=== PATIENT | female | born 1935 | race Caucasian/White ===

== ENCOUNTER 2016-09-07 06:02 | Inpatient (IN) | payer MEDICARE, OTHER ==
[~2016-09-07 06:02] MED LIST: TRANEXAMIC ACID 1,000 MG in NORMAL SALINE 100 ML IV SCH; ceFAZolin 1 GM in NORMAL SALINE MINI-BAG+ 100 ML IV ONE
[2016-09-07] MEDS ORDERED: LIDOCAINE HCL 1% 20 ML VIAL SUBCUT ONE ×2 (06:52→09:16)
[2016-09-07] MEDS ORDERED: MIDAZOLAM HCL 2 MG/2 ML SYR IV ONE (06:52)
[2016-09-07] MEDS ORDERED: ACETAMINOPHEN 1,000 MG/100 ML VIAL IV ONE (06:55)
[2016-09-07] MEDS ORDERED: FAMOTIDINE IN SALINE, ISO-OSM 50 ML IV ONE (06:55)
[2016-09-07] MEDS ORDERED: MIDAZOLAM HCL 2 MG/2 ML VIAL ONE ×2 (06:56→07:43)
[2016-09-07] MEDS ORDERED: TRANEXAMIC ACID 1,000 MG/10 ML VIAL IV ONE ×2 (06:56→13:00)
[2016-09-07] MEDS ORDERED: ceFAZolin 1 GM/10 ML VIAL ONE ×3 (06:56→19:45)
[2016-09-07] MEDS ORDERED: FAMOTIDINE IN SALINE, ISO-OSM 20 MG/50 ML PIGGYBACK IV SCH ×2 (07:00→09:16)
[2016-09-07] MEDS ORDERED: LACTATED RINGERS 1,000 ML IV SCH ×3 (07:00→10:00)
[2016-09-07] MEDS ORDERED: NORMAL SALINE FLUSH 10 ML ONE (07:06)
[2016-09-07] MEDS ORDERED: MORPHINE SULFATE/PF 10 MG/10 ML VIAL ONE ×2 (07:06→07:10)
[2016-09-07] MEDS ORDERED: KETOROLAC TROMETHAMINE 30 MG/ML VIAL ONE (07:07)
[2016-09-07] MEDS ORDERED: ROPIVACAINE HCL 0.5% 30 ML ONE (07:07)
[2016-09-07] MEDS ORDERED: BACITRACIN 14 APP/14 GM TUBE TOPICAL ONE (07:07)
[2016-09-07] MEDS ORDERED: BACITRACIN 50,000 UNITS VIAL IM ONE (07:07)
[2016-09-07] MEDS ORDERED: BUPIVACAINE/EPI 0.25% 1 VIAL VIAL ONE (07:07)
[2016-09-07] MEDS ORDERED: FENTANYL 100 MCG/2 ML VIAL ONE (07:09)
[2016-09-07] MEDS ORDERED: PHENYLEPHRINE HCL 10,000 MCG/ML VIAL ONE (07:10)
[2016-09-07] MEDS ORDERED: TETRACAINE HCL 1% 20 MG/2 ML AMP ONE (07:10)
[2016-09-07] MEDS ORDERED: EPHEDrine SULFATE 50 MG/ML VIAL ONE (07:10)
[2016-09-07] MEDS ORDERED: NORMAL SALINE FLUSH 20 ML ONE (07:11)
[2016-09-07 07:12] LABS: ABO GROUP TYPE A; ANTIBODY SCREEN NEGATIVE; RH TYPE NEGATIVE
[2016-09-07] MEDS: ceFAZolin 1 GM in NORMAL SALINE MINI-BAG+ 100 ML IV ONE ×2 (07:30→13:34)
[2016-09-07] MEDS ORDERED: ONDANSETRON HCL 4 MG/2 ML VIAL IV PRN (09:14)
[2016-09-07] MEDS ORDERED: FENTANYL 100 MCG/2 ML VIAL IV PRN (09:14)
[2016-09-07] MEDS ORDERED: DIPHENHYDRAMINE 50 MG/ML VIAL IV PRN ×3 (09:14→10:41)
[2016-09-07] MEDS ORDERED: HYDROmorphone HCL 1 MG/ML SYR IV PRN (09:14)
[2016-09-07] MEDS ORDERED: DIPHENHYDRAMINE 25 MG CAPSULE PO PRN ×3 (09:14→10:41)
[2016-09-07] MEDS ORDERED: NALBUPHINE HCL 10 MG/ML AMP IV PRN ×3 (09:14→10:41)
[2016-09-07] MEDS ORDERED: NALOXONE HCL 0.4 MG/ML VIAL IV PRN ×9 (09:14→10:41)
[2016-09-07] MEDS ORDERED: MORPHINE SULFATE 10 MG/ML SYR IV PRN (09:14)
[2016-09-07] MEDS ORDERED: TRANEXAMIC ACID 1,000 MG in NORMAL SALINE 100 ML IV SCH (09:16)
[2016-09-07] MEDS ORDERED: ONDANSETRON HCL 4 MG/2 ML VIAL ONE (11:40)
[2016-09-07] MEDS ORDERED: TRANEXAMIC ACID 1,000 MG in NORMAL SALINE 100 ML IV ONE (12:00)
[2016-09-07] MEDS: LACTATED RINGERS 1,000 ML IV SCH (12:18)
--- NOTE | 2016-09-07 12:41 | OPERATIVE REPORT ---
DATE OF SURGERY: 09/07/16 SURGEON: El Salomon DO ANESTHESIA: Spinal. PREOPERATIVE DIAGNOSIS: Left knee osteoarthritis. POSTOPERATIVE DIAGNOSIS: Left knee osteoarthritis. OPERATION PERFORMED: Left total knee arthroplasty. SPECIMENS REMOVED: Diseased bone and soft tissue. ESTIMATED BLOOD LOSS: Minimal. TOTAL TOURNIQUET TIME: 72 minutes. ORTHOPEDIC IMPLANTS 1. Biomet cobalt bone cement high viscosity with Gentamycin. 2. William Persona all polyethylene patella 32 mm in diameter and 8.5 mm in thickness. 3. William Persona natural tibia cemented 5 degree stem left size D. 4. William Persona femur cemented posterior stabilized standard left size 6. 5. William Persona Vivacit E highly crosslinked polyethylene articular surface fixed bearing posterior stabilized left 10 mm size C-D PROCEDURE NOTE: The patient was brought to the operating room suite and after administration of spinal anesthesia the left lower extremity was prepped and draped in a sterile fashion after applying a well padded tourniquet to the left proximal thigh. A longitudinal midline anterior incision was made over the left knee and dissection was carried down to the extensor mechanism. Any small bleeders were cauterized with an electrocautery device. The medial parapatellar arthrotomy was performed. A portion of the anterior fat pad was removed for visualization purposes as were the medial and lateral meniscus of the anterior horns. The anterior cruciate ligament and posterior cruciate ligament were cut. The knee was flexed up and appropriate bone defects were made on the femur and tibia with their proximal and distal cuts, followed by insertion of a 10 mm spacer block to check extension gaps which were well balanced. The knee was then flexed up again with retractors in place and the remainder of the bone defects were made on the femur and tibia to the appropriate depth utilizing the William Persona instrumentation set. The patella was also measured, and its appropriate bone defects were made and the patellar button was inserted, followed by insertion of prosthetic implants throughout the knee for the femur and tibia. The knee was taken through a full range of motion with the patella relocated and was noted to be exceptionally stable through flexion, extension, varus and valgus and toggle and anterior and posterior shuck. The knee was very well balanced throughout flexion and extension. Transfusion was started at this point in the surgery. The trial implants were removed, and the knee was copiously irrigated with bacitracin infused with normal saline, while the cement was being mixed. The cut bony surfaces were dried off with lap sponge and the final prosthetic implants were cemented into place after finger impaction with cement. The trial polyethylene was inserted, and the knee was taken up into full extension, followed by cementing of the patellar button. Excess cement was removed and the tourniquet was then let down. Any bleeders were cauterized with an electrocautery device. A drain was inserted into the knee. Prior to letting down the tourniquet and before inserting the trial polyethylene spacer, the knee was injected with a 60 mL volume of specific cocktail containing 150 mg of ropivacaine, 15 mg of Ketoralac, 0.3 mg epinephrine, and 4 mg morphine sulfate in total volume of 60 mL, making up the difference utilizing 0.9% normal saline for a total volume of 60 mL. The polyethylene spacer was removed and the final articular tibial bearing was inserted and locked into place. The knee was again taken through full range of motion and was noted to be exceptionally stable. The parapatellar arthrotomy was then closed intermittently with #2 Fiberwire intermittently with #1 Vicryl. The remainder of the layers were closed with 0 Vicryl, followed 2-0 Vicryl, followed by a 3-0 Monocryl at the skin subcutaneously, followed by application of a Aquacel Ag dressing. Tegaderm was placed over the drain site. The knee was wrapped with cast padding and an Magdaleno bandage for compression and a [facility] Cryo-Cuff was fitted. The patient was transferred from the operating room suite to the recovery room in stable condition. ORIN
[2016-09-07] MEDS ORDERED: NORMAL SALINE 100 ML IV ONE ×2 (12:51→19:45)
[2016-09-07] MEDS: ceFAZolin 1 GM in NORMAL SALINE MINI-BAG+ 100 ML IV SCH ×2 (12:57→20:00)
[2016-09-07] MEDS: MULTIVITAMINS THERAPEUTIC 1 TABLET PO SCH (13:06)
[2016-09-07] MEDS: FOLIC ACID 1 MG TABLET PO SCH (13:06)
[2016-09-07] MEDS: ASCORBIC ACID 500 MG TABLET PO SCH ×2 (13:06→20:00)
[2016-09-07] MEDS: ONDANSETRON HCL 4 MG/2 ML VIAL IV PRN (16:38)
[2016-09-08] MEDS: ACETAMINOPHEN 325 MG TABLET PO PRN ×2 (00:24→21:05)
[2016-09-08] MEDS: LACTATED RINGERS 1,000 ML IV SCH ×2 (02:09→15:21)
[2016-09-08] MEDS: HYDROcodone/APAP 5/325 MG 1 TAB TABLET PO PRN ×2 (04:14→09:11)
[2016-09-08] MEDS: ceFAZolin 1 GM in NORMAL SALINE MINI-BAG+ 100 ML IV SCH (04:51)
[2016-09-08] MEDS ORDERED: ceFAZolin 1 GM/10 ML VIAL ONE (04:58)
[2016-09-08] MEDS ORDERED: NORMAL SALINE 100 ML IV ONE (04:59)
[2016-09-08 06:08] LABS: BASOPHIL# 0.1 X 10^3uL (0.0-0.1); BASOPHILS 0.9 % (0.0-2.0); EOSINOPHILS 0.8 % (0.0-6.0); EOSINOPHILS# 0.1 X 10^3uL (0.0-0.4); HEMOGLOBIN 11.1 g/dL (12.0-16.0); LYMPHOCYTES 15.7 % (20.0-40.0); LYMPHOCYTES# 1.4 X 10^3uL (0.8-3.8); MEAN CELL VOLUME 96.8 fL (80.0-100.0); MEAN CORPUS. HGB CONCENTRATION 34.6 g/dL (32.0-36.0); MEAN CORPUSCULAR HEMOGLOBIN 33.5 pg (29.0-35.0); MEAN PLATELET VOLUME 8.7 fL (7.4-10.4); MONOCYTES 9.4 % (2.0-10.0); MONOCYTES# 0.8 X 10^3uL (0.2-1.0); NEUTROPHILS 73.2 % (54.0-75.0); NEUTROPHILS# 6.4 X 10^3uL (2.6-6.7); RED BLOOD COUNT 3.31 X 10^6uL (4.20-6.10); RED CELL DISTRIBUTION WIDTH 11.8 % (11.5-14.5); WHITE BLOOD COUNT 8.8 X 10^3uL (3.9-10.7)
--- NOTE | 2016-09-08 07:04 | RADIOLOGY REPORT ---
Two views of the left knee are compared with prior films dated 09/17/2015. There has been interval placement of a left total knee arthroplasty. The components appear intact and in appropriate position. No other change is identified. IMPRESSION: Unremarkable total knee arthroplasty. MTDD
[2016-09-08] MEDS: FOLIC ACID 1 MG TABLET PO SCH (08:53)
[2016-09-08] MEDS: ASCORBIC ACID 500 MG TABLET PO SCH ×2 (08:53→21:07)
[2016-09-08] MEDS: MULTIVITAMINS THERAPEUTIC 1 TABLET PO SCH (08:53)
[2016-09-08] MEDS: ENOXAPARIN SODIUM 30 MG/0.3 ML SYR SUBCUT SCH ×2 (08:53→21:07)
[2016-09-08] MEDS: ONDANSETRON HCL 4 MG/2 ML VIAL IV PRN (10:39)
[2016-09-08] MEDS: LISINOPRIL 5 MG TABLET PO SCH (11:25)
[2016-09-08] MEDS: RALOXIFENE PO SCH (11:26)
[2016-09-08] MEDS ORDERED: traMADol HCL 50 MG TABLET PO PRN (16:42)
[2016-09-09] MEDS: ACETAMINOPHEN 325 MG TABLET PO PRN ×5 (01:17→19:43)
[2016-09-09] MEDS: LACTATED RINGERS 1,000 ML IV SCH (04:02)
[2016-09-09 06:20] LABS: BASOPHILS 0.4 % (0.0-2.0); EOSINOPHILS 0.3 % (0.0-6.0); HEMATOCRIT 31.6 % (36.0-48.0); HEMOGLOBIN 11.1 g/dL (12.0-16.0); LYMPHOCYTES 20.9 % (20.0-40.0); LYMPHOCYTES# 2.1 X 10^3uL (0.8-3.8); MEAN CORPUS. HGB CONCENTRATION 35.2 g/dL (32.0-36.0); MEAN CORPUSCULAR HEMOGLOBIN 34.1 pg (29.0-35.0); MEAN PLATELET VOLUME 8.7 fL (7.4-10.4); MONOCYTES 11.2 % (2.0-10.0); MONOCYTES# 1.1 X 10^3uL (0.2-1.0); NEUTROPHILS 67.2 % (54.0-75.0); NEUTROPHILS# 6.7 X 10^3uL (2.6-6.7); RED BLOOD COUNT 3.26 X 10^6uL (4.20-6.10); RED CELL DISTRIBUTION WIDTH 11.3 % (11.5-14.5); WHITE BLOOD COUNT 9.9 X 10^3uL (3.9-10.7)
[2016-09-09] MEDS: ASCORBIC ACID 500 MG TABLET PO SCH ×2 (08:38→20:09)
[2016-09-09] MEDS: LISINOPRIL 5 MG TABLET PO SCH (08:38)
[2016-09-09] MEDS: RALOXIFENE PO SCH (08:38)
[2016-09-09] MEDS: ENOXAPARIN SODIUM 30 MG/0.3 ML SYR SUBCUT SCH ×2 (08:38→20:09)
[2016-09-09] MEDS: MULTIVITAMINS THERAPEUTIC 1 TABLET PO SCH (08:38)
[2016-09-09] MEDS: FOLIC ACID 1 MG TABLET PO SCH (08:38)
--- NOTE | 2016-09-09 10:38 | PROGRESS NOTE: Orthopedics ---
Orthopedic PN Subjective - Subjective Principal Diagnosis: s/p Left TKA Post-op Day: 1 Interval history: Pt seen and examined at bedside on September 08. Pt a little confused with narcotics. Ortho PN Objective Exam - Latest Vital Signs and I&O Latest Vital Signs/I&O: Vital Signs Temp 36.8 C 09/09/16 07:54 Pulse 83 09/09/16 07:54 Resp 14 09/09/16 09:00 BP 125/70 09/09/16 07:54 Pulse Ox 96 09/09/16 09:00 Intake & Output 09/08/16 09/09/16 09/09/16 17:59 05:59 17:59 Intake Total 910 1150 Output Total 1615 1325 Balance -705 -175 Weight 64.864 kg Intake: IV 750 Left Forearm 750 Oral 910 400 Output: Drainage 90 Left Knee 90 Urine 1525 1325 Other: Urine Appearance Clear Clear Clear Urine Color Yellow Yellow Yellow Voiding Method Indwelling Catheter Indwelling Catheter Indwelling Catheter # Bowel Movements 0 - Post-Operative Exam Post-op Day: 1 Dressing Status: dry & intact Distal Pulses: +2 Active Motor: intact Sensation: intact Liz's sign: Negative Calf tenderness: no Weight bearing status: full - Lab Labs: Laboratory Last Values WBC 9.9 X 10^3uL (3.9-10.7) 09/09/16 05:25 RBC 3.26 X 10^6uL (4.20-6.10) L 09/09/16 05:25 Hgb 11.1 g/dL (12.0-16.0) L 09/09/16 05:25 Hct 31.6 % (36.0-48.0) L 09/09/16 05:25 MCV 97.0 fL (80.0-100.0) 09/09/16 05:25 MCH 34.1 pg (29.0-35.0) 09/09/16 05:25 MCHC 35.2 g/dL (32.0-36.0) 09/09/16 05:25 RDW 11.3 % (11.5-14.5) L 09/09/16 05:25 Plt Count 158 X 10^3uL (130-440) 09/09/16 05:25 MPV 8.7 fL (7.4-10.4) 09/09/16 05:25 Neutrophils % 67.2 % (54.0-75.0) 09/09/16 05:25 Lymphocytes % 20.9 % (20.0-40.0) 09/09/16 05:25 Eosinophils % 0.3 % (0.0-6.0) 09/09/16 05:25 Basophils % 0.4 % (0.0-2.0) 09/09/16 05:25 Neutrophils # 6.7 X 10^3uL (2.6-6.7) 09/09/16 05:25 Lymphocytes # 2.1 X 10^3uL (0.8-3.8) 09/09/16 05:25 Monocytes 11.2 % (2.0-10.0) H 09/09/16 05:25 Monocytes # 1.1 X 10^3uL (0.2-1.0) H 09/09/16 05:25 Eosinophils # 0.0 X 10^3uL (0.0-0.4) 09/09/16 05:25 Basophils # 0.0 X 10^3uL (0.0-0.1) 09/09/16 05:25 ABO Group Type a 09/07/16 06:25 Rh Factor Negative 09/07/16 06:25 Antibody Screen Negative 09/07/16 06:25 - Allied Health Notes Allied health notes reviewed: nursing, OT Assessment and Plan-Ortho - Date of Encounter Date of Encounter: 09/09/16 (1) Status post total knee replacement, left Status: Acute Assessment and plan: Will change oral pain med to tramadol and continue Tylenol. OOB with PTx. DVT PPx. ABX PPx. Current Visit: Yes Quality Questions - VTE Prophylaxis Assessment VTE Present on Admission?: No Patient at risk for venous thromboembolism?: Yes VTE Risk Level: High Risk Pharmaceutical VTE prophylaxis contraindication reason: not indicated Mechanical VTE prophylaxis contraindication reason: N/A- VTE prophylaxsis ordered
--- NOTE | 2016-09-09 10:40 | PROGRESS NOTE: Orthopedics ---
Orthopedic PN Subjective - Subjective Principal Diagnosis: s/p L TKA Post-op Day: 2 Interval history: Transferring well. Confused with tramadol. Found sitting on floor last night. Ambulating with walker today. Ortho PN Objective Exam - Latest Vital Signs and I&O Latest Vital Signs/I&O: Vital Signs Temp 36.8 C 09/09/16 07:54 Pulse 83 09/09/16 07:54 Resp 14 09/09/16 09:00 BP 125/70 09/09/16 07:54 Pulse Ox 96 09/09/16 09:00 Intake & Output 09/08/16 09/09/16 09/09/16 17:59 05:59 17:59 Intake Total 910 1150 Output Total 1615 1325 Balance -705 -175 Weight 64.864 kg Intake: IV 750 Left Forearm 750 Oral 910 400 Output: Drainage 90 Left Knee 90 Urine 1525 1325 Other: Urine Appearance Clear Clear Clear Urine Color Yellow Yellow Yellow Voiding Method Indwelling Catheter Indwelling Catheter Indwelling Catheter # Bowel Movements 0 - Post-Operative Exam Post-op Day: 2 Dressing Status: dry & intact Drainage Amount: none Distal Pulses: +2 Active Motor: intact Sensation: intact Liz's sign: Negative Calf tenderness: no Weight bearing status: full - Lab Labs: Laboratory Last Values WBC 9.9 X 10^3uL (3.9-10.7) 09/09/16 05:25 RBC 3.26 X 10^6uL (4.20-6.10) L 09/09/16 05:25 Hgb 11.1 g/dL (12.0-16.0) L 09/09/16 05:25 Hct 31.6 % (36.0-48.0) L 09/09/16 05:25 MCV 97.0 fL (80.0-100.0) 09/09/16 05:25 MCH 34.1 pg (29.0-35.0) 09/09/16 05:25 MCHC 35.2 g/dL (32.0-36.0) 09/09/16 05:25 RDW 11.3 % (11.5-14.5) L 09/09/16 05:25 Plt Count 158 X 10^3uL (130-440) 09/09/16 05:25 MPV 8.7 fL (7.4-10.4) 09/09/16 05:25 Neutrophils % 67.2 % (54.0-75.0) 09/09/16 05:25 Lymphocytes % 20.9 % (20.0-40.0) 09/09/16 05:25 Eosinophils % 0.3 % (0.0-6.0) 09/09/16 05:25 Basophils % 0.4 % (0.0-2.0) 09/09/16 05:25 Neutrophils # 6.7 X 10^3uL (2.6-6.7) 09/09/16 05:25 Lymphocytes # 2.1 X 10^3uL (0.8-3.8) 09/09/16 05:25 Monocytes 11.2 % (2.0-10.0) H 09/09/16 05:25 Monocytes # 1.1 X 10^3uL (0.2-1.0) H 09/09/16 05:25 Eosinophils # 0.0 X 10^3uL (0.0-0.4) 09/09/16 05:25 Basophils # 0.0 X 10^3uL (0.0-0.1) 09/09/16 05:25 ABO Group Type a 09/07/16 06:25 Rh Factor Negative 09/07/16 06:25 Antibody Screen Negative 09/07/16 06:25 - Allied Health Notes Allied health notes reviewed: nursing, PT Assessment and Plan-Ortho - Date of Encounter Date of Encounter: 09/09/16 (1) Status post total knee replacement, left Status: Acute Assessment and plan: Will discontinue tramadol and continue Tylenol. OOB with and ambulate with PTx. DVT PPx. Current Visit: Yes
[2016-09-09] MEDS ORDERED: CYANOCOBALAMIN 1,000 MCG TABLET PO SCH (10:45)
[2016-09-09] MEDS ORDERED: LISINOPRIL 5 MG TABLET PO SCH (11:00)
[2016-09-09] MEDS: ZINC GLUCONATE 50 MG TABLET PO SCH (13:37)
[2016-09-09] MEDS: CYANOCOBALAMIN 1,000 MCG TABLET PO SCH (13:38)
[2016-09-10 06:59] LABS: HEMATOCRIT 30.9 % (36.0-48.0); HEMOGLOBIN 10.3 g/dL (12.0-16.0); MEAN CORPUS. HGB CONCENTRATION 33.3 g/dL (32.0-36.0); MEAN CORPUSCULAR HEMOGLOBIN 35.3 pg (29.0-35.0); PLATELET COUNT 158 X 10^3uL (130-440); RED BLOOD COUNT 2.92 X 10^6uL (4.20-6.10); WHITE BLOOD COUNT 9.9 X 10^3uL (3.9-10.7)
[2016-09-10 07:00] LABS: LYMPHOCYTE % (Manual) 16 % (20.0-40.0); MONOCYTE % (Manual) 14 % (2.0-10.0); NEUTROPHIL % (Manual) 69 % (54.0-75.0); PLATELET ESTIMATE ADEQUATE
[2016-09-10] MEDS: ACETAMINOPHEN 325 MG TABLET PO PRN ×4 (07:55→22:36)
[2016-09-10] MEDS: FOLIC ACID 1 MG TABLET PO SCH (08:25)
[2016-09-10] MEDS: ASCORBIC ACID 500 MG TABLET PO SCH ×2 (08:25→20:11)
[2016-09-10] MEDS: ZINC GLUCONATE 50 MG TABLET PO SCH (08:25)
[2016-09-10] MEDS: MULTIVITAMINS THERAPEUTIC 1 TABLET PO SCH (08:25)
[2016-09-10] MEDS: CYANOCOBALAMIN 1,000 MCG TABLET PO SCH (08:25)
[2016-09-10] MEDS: LISINOPRIL 5 MG TABLET PO SCH (08:26)
[2016-09-10] MEDS: RALOXIFENE PO SCH (08:26)
[2016-09-10] MEDS: ENOXAPARIN SODIUM 30 MG/0.3 ML SYR SUBCUT SCH ×2 (08:26→20:11)
--- NOTE | 2016-09-10 11:12 | PROGRESS NOTE: Orthopedics ---
Orthopedic PN Subjective - Subjective Principal Diagnosis: s/p Total Knee Replacement Post-op Day: 3 Interval history: Pt doing better, but still having difficulty with [id number]. Ortho PN Objective Exam - Latest Vital Signs and I&O Latest Vital Signs/I&O: Vital Signs Temp 36.7 C 09/10/16 06:39 Pulse 78 09/10/16 06:39 Resp 20 09/10/16 09:00 BP 119/70 09/10/16 06:39 Pulse Ox 90 09/10/16 09:00 Intake & Output 09/09/16 09/10/16 09/10/16 17:59 05:59 17:59 Intake Total 930 300 Output Total 1250 1125 Balance -320 -825 Weight 64.864 kg Intake: Oral 930 300 Output: Urine 1250 1125 Other: Urine Appearance Clear Clear Urine Color Yellow Yellow Stool Size Smear Smear Stool Characteristics Formed Formed Voiding Method Indwelling Catheter Toilet Toilet # Voids 1 3 - Post-Operative Exam Post-op Day: 3 Dressing Status: dry & intact Drainage Amount: none Distal Pulses: +2 Active Motor: intact Sensation: intact Liz's sign: Negative Calf tenderness: no Weight bearing status: full - Lab Labs: Laboratory Last Values WBC 9.9 X 10^3uL (3.9-10.7) 09/10/16 05:10 RBC 2.92 X 10^6uL (4.20-6.10) L 09/10/16 05:10 Hgb 10.3 g/dL (12.0-16.0) L 09/10/16 05:10 Hct 30.9 % (36.0-48.0) L 09/10/16 05:10 MCV 106.0 fL (80.0-100.0) H D 09/10/16 05:10 MCH 35.3 pg (29.0-35.0) H 09/10/16 05:10 MCHC 33.3 g/dL (32.0-36.0) 09/10/16 05:10 RDW Not Reportable 09/10/16 05:10 Plt Count 158 X 10^3uL (130-440) 09/10/16 05:10 MPV Not Reportable 09/10/16 05:10 Total Counted 100 09/10/16 05:10 Neutrophils % 67.2 % (54.0-75.0) 09/09/16 05:25 Neutrophils % (Manual) 69 % (54.0-75.0) 09/10/16 05:10 Lymphocytes % 20.9 % (20.0-40.0) 09/09/16 05:25 Lymphocytes % (Manual) 16 % (20.0-40.0) L 09/10/16 05:10 Monocytes % (Manual) 14 % (2.0-10.0) H 09/10/16 05:10 Eosinophils % 0.3 % (0.0-6.0) 09/09/16 05:25 Basophils % 0.4 % (0.0-2.0) 09/09/16 05:25 Neutrophils # 6.7 X 10^3uL (2.6-6.7) 09/09/16 05:25 Lymphocytes # 2.1 X 10^3uL (0.8-3.8) 09/09/16 05:25 Monocytes 11.2 % (2.0-10.0) H 09/09/16 05:25 Monocytes # 1.1 X 10^3uL (0.2-1.0) H 09/09/16 05:25 Eosinophils # 0.0 X 10^3uL (0.0-0.4) 09/09/16 05:25 Basophils # 0.0 X 10^3uL (0.0-0.1) 09/09/16 05:25 Platelet Estimate Adequate 09/10/16 05:10 ABO Group Type a 09/07/16 06:25 Rh Factor Negative 09/07/16 06:25 Antibody Screen Negative 09/07/16 06:25 - Allied Health Notes Allied health notes reviewed: nursing, PT Assessment and Plan-Ortho - Date of Encounter Date of Encounter: 09/10/16 (1) Status post total knee replacement, left Status: Acute Assessment and plan: Continue to work with PT. Needs to do stairs. Probable d/c home tomorrow PM. Current Visit: Yes
[2016-09-11] MEDS: ACETAMINOPHEN 325 MG TABLET PO PRN ×2 (06:05→15:35)
[2016-09-11] MEDS: FOLIC ACID 1 MG TABLET PO SCH (08:26)
[2016-09-11] MEDS: ENOXAPARIN SODIUM 30 MG/0.3 ML SYR SUBCUT SCH (08:26)
[2016-09-11] MEDS: MULTIVITAMINS THERAPEUTIC 1 TABLET PO SCH (08:27)
[2016-09-11] MEDS: ASCORBIC ACID 500 MG TABLET PO SCH (08:27)
[2016-09-11] MEDS: CYANOCOBALAMIN 1,000 MCG TABLET PO SCH (08:27)
[2016-09-11] MEDS: LISINOPRIL 5 MG TABLET PO SCH (08:27)
[2016-09-11] MEDS: ZINC GLUCONATE 50 MG TABLET PO SCH (08:28)
[2016-09-11] MEDS: RALOXIFENE PO SCH (08:31)
[2016-09-11 11:27] VITALS: BP 110/56; PULSE 77; RESP 12; TEMP 98.4; O2SAT 86
--- NOTE | 2016-09-11 15:04 | DC SUMMARY: Orthopedic Note ---
Discharge Summary: Surg/OB Provider: Date of Admission: 09/08/16 Admitting Provider: ADA MCCOY DO Attending Provider: ADA MCCOY DO Discharging Provider: ADA MCCOY DO Primary Care Provider: Discharge Date: 09/11/16 - Diagnosis (1) Status post total knee replacement, left Status: Acute Hospital Course: Ms. SIDHU is a 81 year old female. Left total knee. Confused post-op with narcotics. Did well with just Tylenol for analgesia. Received postoperative DVT and ABX PPx. Ambulating progressed well with PTx. Discharge - Patient/Caregiver Discharge Instructions Activity Level: wbat Diet: reg Additional Instructions: f/u in 8-10 days post op. Should leave dressing in place. Follow up: ADA MCCOY DO [ACTIVE (Staff Physician)] - 09/15/16 11:00 am Home Medications: Enoxaparin Sodium [LOVENOX 30mg/0.3mL*] 30 mg SUBCUT BID #20 syr Disposition: HOME, SELF-CARE Orthopedic: Discharge Phy Exam - Latest Vital Signs and I&O Latest Vital Signs/I&O: Vital Signs Temp 36.9 C 09/11/16 11:00 Pulse 77 09/11/16 11:00 Resp 12 09/11/16 11:00 BP 110/56 09/11/16 11:00 Pulse Ox 86 L 09/11/16 11:00 Intake & Output 09/10/16 09/11/16 09/11/16 17:59 05:59 17:59 Intake Total 900 450 Output Total 2312 850 Balance -1412 -400 Intake: Oral 900 450 Output: Urine 2312 850 Other: Urine Appearance Clear Clear Clear Urine Color Yellow Yellow Yellow Stool Size Smear Small Small Stool Characteristics Formed Formed Formed Brown Brown Voiding Method Toilet Toilet Toilet # Voids 3 2 # Bowel Movements 1 - Post-Operative Exam Post-op Day: 4 Dressing Status: dry & intact Drainage Amount: none Distal Pulses: +2 Active Motor: intact Sensation: intact Liz's sign: Negative Calf tenderness: no Weight bearing status: full - Allied Health Notes Allied health notes reviewed: OT, PT Discharge Summary Data - Medication History Medication History: Home Medications Cod Liver Oil 1 each PO BID 09/07/16 Cyanocobalamin [VITAMIN B-12*] 1 tab PO DAILY 09/07/16 Lisinopril [Prinivil*] 5 mg PO DAILY 09/07/16 Multivitamins,Therapeutic [Thera] 1 udtab PO DAILY 09/07/16 Naproxen [Naprosyn*] 250 mg PO DAILY 09/07/16 Non-Formulary Medication 1 tab PO DAILY 09/07/16 Zinc Gluconate [Zinc*] 50 mg PO DAILY 09/07/16 Inpatient Medications 09/07/16 10:41 Acetaminophen [Tylenol] 325 - 650 mg PO Q4H PRN Folic Acid [Folate] 1 mg PO DAILY Ondansetron HCl [Zofran] 4 mg IV Q4H PRN 09/07/16 11:00 Ascorbic Acid [Vitamin C] 500 mg PO BID Lactated Ringers [Lr 1000 ml Bag] 1,000 ml IV CONT Multivitamins,Therapeutic [Thera] 1 tab PO DAILY 09/08/16 09:00 Enoxaparin Sodium [Lovenox] 30 mg SUBCUT BID Lisinopril [Prinivil] 5 mg PO DAILY 09/08/16 11:00 Non-Formulary Medication 1 PO DAILY 09/08/16 16:42 traMADol HCL [Ultram] 50 mg PO Q4H PRN 09/09/16 11:00 Zinc Gluconate 50 mg PO DAILY 09/09/16 11:35 Cyanocobalamin [Vitamin B12] 1,000 mcg PO DAILY Procedures and tests throughout hospitalization: Completed Lab Orders 09/07/16 06:25 ABO GROUP [HEM] Routine ANTIBODY SCREEN [HEM] Routine RH TYPE [HEM] Routine 09/08/16 05:35 CBC AUTO DIF, MDIF/RMOR IF IND [HEM] AMDRAW 09/09/16 05:25 CBC AUTO DIF, MDIF/RMOR IF IND [HEM] AMDRAW 09/10/16 05:10 CBC W/ MANUAL DIFFERENTIAL [HEM] Routine Completed Imaging Orders 09/07/16 10:41 KNEE; [address] [place] [address] [place] [address] [RAD] Routine Completed Microbiology Orders 09/09/16 10:33 OCCULT BLOOD (1-3 SAMPLES) [RM] Pending Orders 09/07/16 01:18 PreOp Chlorahexidine wash .5minPreOp PreOp Shave with Clippers ONCE Resuscitation Status Routine 09/07/16 09:14 Shelbie hugger if temp <34 C PRN Did pt have a spinal/epidural? . Maintain IV access post spinal CONTINUOUS Monitor End Tidal CO2 CONTINUOUS Narcan @ bedside x24h after sp .x24hrs Oxygen by Nasal Cannula TITRATE TO >90% Titrate Oxygen TITRATE B/W 90-95% Vital Signs Q1HX12,Q2H Warm blankets if temp<36 C PRN 09/07/16 09:15 Notify Anesthesia . 09/07/16 09:16 Maintain IV access post spinal CONTINUOUS Monitor End Tidal CO2 CONTINUOUS Narcan @ bedside x24h after sp .x24hrs Oxygen by Nasal Cannula TITRATE TO >90% Vital Signs Q1HX12,Q2H 09/07/16 10:41 Admit: Inpatient Routine Activity: Ambulate with Assist TID Activity: BRP w/ Assist Only . Activity: FWB USE WALKER Activity: Knee Extension . Activity: Up to Chair TID Apply ice to affected area PRN Clinical Pathway: updt in t QSHIFT Incentive Spirometry Q1H Intake and Output QSHIFT I&O Notify Physician . Oxygen by Nasal Cannula TITRATE TO >90% Sequential Compression Device WHILE IN BED ANDRES Hose CONTINUOUS Titrate Oxygen TITRATE TO >90% Turn, Cough, and Deep Breathe Q2H Vital Signs ROUTINE VITALS (Q4H) Co Teacher Consult [CM] Routine Acetaminophen [Tylenol] 325 - 650 mg PO Q4H PRN Folic Acid [Folate] 1 mg PO DAILY Ondansetron HCl [Zofran] 4 mg IV Q4H PRN 09/07/16 11:00 Ascorbic Acid [Vitamin C] 500 mg PO BID Lactated Ringers [Lr 1000 ml Bag] 1,000 ml IV CONT Multivitamins,Therapeutic [Thera] 1 tab PO DAILY 09/07/16 Lunch Regular [DIET] 09/08/16 09:00 Enoxaparin Sodium [Lovenox] 30 mg SUBCUT BID Lisinopril [Prinivil] 5 mg PO DAILY 09/08/16 10:29 Physical Therapy Eval and Treatment [PT] Routine 09/08/16 11:00 Non-Formulary Medication 1 PO DAILY 09/08/16 16:42 traMADol HCL [Ultram] 50 mg PO Q4H PRN 09/09/16 11:00 Zinc Gluconate 50 mg PO DAILY 09/09/16 11:35 Cyanocobalamin [Vitamin B12] 1,000 mcg PO DAILY
--- NOTE | 2016-09-15 13:38 | PREOPERATIVE H&P ---
History of Present Illness (El Salomon DO; 09/02/2016 11:26 AM) The patient is a 81 year old female. The patient presents for preop prior to her left total knee arthroplasty. She has stopped all of her appropriate medications. She has had no recent illnesses. Her skin is in good condition. 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 I expect she will have a good result, given her weight loss and exercise. 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 Will follow up for her annual physical in November, or as needed. Bruit of right carotid artery (R09.89)11/2014 Carotid dopplers 11/2014 showing only 1-15% stenosis bilaterally Hearing loss, bilateral (H91.93)2016 Bilateral hearing aids Allergies (Nadya Hutchins RN; 09/02/2016 11:13 AM) Chloroquine Severe, TEN type reaction. Benadryl? Not likely to be the culprit, much more likely to be chloroquine. Family History (Nadya Hutchins RN; 09/02/2016 11:13 AM) Mother at 83 from complications of Type II DM. History of breast cancer, not fatal event. Had peripheral vascular disease, CAD, history of Rheumatic Fever and valvular heart disease. No hypertension known. Breast Cancer Mother had breast cancer at 60, cured; sister still alive with bilateral cancer history; maternal aunt No Significant Family Ocular History Father Father at age 70 with heart problems, which included CAD, CHF. Had several heart attacks. He also had gallbladder disease, and after surgery. Sister Sister with breast cancer twice. 85. Just had knee replacement. Chronic bladder infections. doing well 2013, diagnosed with Alzheimers 2014. Stable 2016 Social History (Nadya Hutchins, RN; 09/02/2016 11:13 AM) Tobacco use Former smoker. Smoked until around 1964, about a pack per day. Alcohol use Moderate alcohol use. One or two cocktail hour drinks. Sometimes wine with dinner. Medication History (Nadya Hutchins RN; 09/02/2016 11:13 AM) Lisinopril (5MG Tablet, 1 Oral daily, Taken starting 01/31/2016) Active. Evista (60MG Tablet, 1 Oral daily, Taken starting 05/27/2016) Active. Zinc (30MG Tablet, 1 Oral daily) Active. Aleve (220MG Tablet, 1 Oral daily) Active. Vitamin B-12 (1000MCG Tablet, 1 Oral daily) Active. Cod Liver Oil (1 caps Oral twice daily) Active. Multivitamins (1 Oral daily) Active. (Natural) Medications Reconciled Review of Systems (Nadya Hutchins RN; 09/02/2016 11:13 AM) General Not Present- Chills and Fever. Skin Not Present- Erythema, Skin Color Changes and Skin Problems. HEENT Not Present- Sleep Apnea. Neck Not Present- Neck Pain. Respiratory Not Present- Cough and Shortness of Breath. Cardiovascular Not Present- Chest Pain, Difficulty Breathing On Exertion, Fainting and Leg Pain and/or Swelling. Gastrointestinal Not Present- Abdominal Pain, Nausea and Vomiting. Female Genitourinary Not Present- Painful Urination. Musculoskeletal Not Present- Decreased Range of Motion, Joint Pain, Joint Stiffness, Joint Swelling, Muscle Pain and Muscle Weakness. Neurological Not Present- Dizziness, Focal Neurological Symptoms, Numbness in extremities, Trouble walking and Weakness. Psychiatric Not Present- Anorexia, Anxiety and Depression. Endocrine Not Present- Weight Loss. Hematology Not Present- Bleeding Problems, DVT and Easy Bruising. Vitals (Nadya Hutchins RN; 09/02/2016 11:13 AM) 09/02/2016 11:11 AM Weight: 143 lb Height: 63in Body Surface Area: 1.68 m Body Mass Index: 25.33 kg/m Temp.: 98F Pulse: 84 (Regular) Resp.: 16 (Unlabored) BP: 112/66 (Sitting, Left Arm, Standard) Physical Exam (El Salomon DO; 09/02/2016 11:27 AM) The physical exam findings are as follows: Note:Full range of motion of the knee. Skin is intact. Assessment & Plan (El Salomon DO; 09/02/2016 11:30 AM) Primary localized osteoarthritis of left knee (M17.12) Impression: Patient will take her total knee arthroplasty class today. Signed by El Salomon DO (09/02/2016 11:30 AM) Patient was examined at bedside and there are no interval changes. Signed El Salomon DO 09/08/2016 SAADD
== END 2016-09-11 13:35 | disposition home or self-care (01) | DRG 470 ==
LOC: SDS 06:02 → UNDOADMIN 11:23 → IN 11:23
PROVIDERS: ADMIT Orthopaedic Surgery; ATTEND Orthopaedic Surgery
PROC: 0SRD0J9 Replacement of Left Knee Joint with Synthetic Substitute, Cemented, Open Approach (ICD-10-PCS; principal; 2016-09-08)
DX: M17.12 Unilateral primary osteoarthritis, left knee (principal); I10 Essential (primary) hypertension; D69.9 Hemorrhagic condition, unspecified; I83.899 Varicose veins of unspecified lower extremity with other complications; L98.9 Disorder of the skin and subcutaneous tissue, unspecified; G47.9 Sleep disorder, unspecified; M85.80 Other specified disorders of bone density and structure, unspecified site; E78.5 Hyperlipidemia, unspecified; M94.262 Chondromalacia, left knee; R09.89 Other specified symptoms and signs involving the circulatory and respiratory systems; H91.93 Unspecified hearing loss, bilateral; H04.123 Dry eye syndrome of bilateral lacrimal glands; Z79.899 Other long term (current) drug therapy
CPT/HCPCS: 36415; 73560; 82270; 85007; 85025; 85027; 86850; 86900; 86901; C1776; J0171; J0690; J1650; J1885; J2250; J2370; J2405; J2795; J7120; Q0163